=== PATIENT | male | born 1960 | race African-American/Black ===

== ENCOUNTER 2016-07-26 15:16 | Emergency (ER) | payer OTHER ==
[2016-07-26 15:34] VITALS: BP 107/71; PULSE 67; TEMP 99; BMI 27.7
[2016-07-26] MEDS ORDERED: FAMOTIDINE 20 MG/50 ML IVPB 50 ML IVPB ONE ×2 (16:19→16:24)
[2016-07-26] MEDS ORDERED: MAG HYDROX/AL HYDROX/SIMETH 30 ML UNIT-DOSE CUP PO ONE (16:19)
--- NOTE | 2016-07-26 16:19 | PDOC ---
History of Present Illness - General History Source: Patient Exam Limitations: No Limitations - History of Present Illness Initial Comments: 07/26/16 16:24 The patient is a 55 year old male, well-known to the ED, with a significant past medical history of HTN, Hepatitis C, Liver cirrhosis, Liver CA, ascites, polysubstance abuse and hemorrhoids who presents to the ED with complaints of abdominal pain for 2 weeks. The patient reports nonradiating left upper quadrant pain. Patient describes the pain as a stabbing-like sensation. The patient reports chills associated with present symptoms. Denies fevers. Denies chest pain or shortness of breath. Denies nausea, vomiting , or diarrhea. Denies changes in urination. Denies any other symptoms. PMD: Dr. Davis <Fartun Araya - Last Filed: 07/26/16 16:24> <Elvie Turk - Last Filed: 07/26/16 18:58> - General Chief Complaint: Pain, Acute Stated Complaint: LEFT ABDOMINAL PAIN Time Seen by Provider: 07/26/16 15:36 Past History <Fartun Araya - Last Filed: 07/26/16 16:24> - Past Medical History GI Disorders: Yes (gastroenteritis gi bleed) HTN: Yes Other medical history: LIVER CANCER - Psycho/Social/Smoking Cessation Hx Anxiety: No Suicidal Ideation: No Smoking History: Former smoker Have you smoked in the past 12 months: No Information on smoking cessation initiated: No Hx Alcohol Use: No Drug/Substance Use Hx: Yes Substance Use Type: None <Elvie Turk - Last Filed: 07/26/16 18:58> - Past Medical History Allergies/Adverse Reactions: Allergies Allergy/AdvReac Type Severity Reaction Status Date / Time chocolate flavor Allergy Verified 07/26/16 16:01 lactose AdvReac Verified 07/26/16 16:01 Home Medications: Ambulatory Orders Amlodipine Besylate [Norvasc -] 5 mg PO DAILY 07/26/16 Docusate Sodium [Colace -] 100 mg PO TID 07/26/16 Furosemide [Lasix] 40 mg PO DAILY 07/26/16 Metoclopramide HCl 10 mg PO TID 07/26/16 Spironolactone 25 mg PO DAILY 07/26/16 Review of Systems - Review of Systems Able to Perform ROS?: Yes Comments:: 07/26/16 16:24 GENERAL/CONSTITUTIONAL: + chills. No fever. No weakness. HEAD, EYES, EARS, NOSE AND THROAT: No change in vision. No ear pain or discharge. No sore throat. CARDIOVASCULAR: No chest pain or shortness of breath. RESPIRATORY: No cough, wheezing, or hemoptysis. GASTROINTESTINAL:+ abdominal pain. No nausea, vomiting, diarrhea or constipation. GENITOURINARY: No dysuria, frequency, or change in urination. MUSCULOSKELETAL: No joint or muscle swelling or pain. No neck or back pain. SKIN: No rash NEUROLOGIC: No headache, vertigo, loss of consciousness, or change in strength/ sensation. ENDOCRINE: No increased thirst. No abnormal weight change. HEMATOLOGIC/LYMPHATIC: No anemia, easy bleeding, or history of blood clots. ALLERGIC/IMMUNOLOGIC: No hives or skin allergy. All Other Systems: Reviewed and Negative <Fartun Araya - Last Filed: 07/26/16 16:24> *Physical Exam - Vital Signs Last Vital Signs Temp Pulse Resp BP Pulse Ox 99 F 67 20 107/71 95 07/26/16 15:17 07/26/16 15:17 07/26/16 15:17 07/26/16 16:17 07/26/16 15:17 - Physical Exam Comments: 07/26/16 16:25 GENERAL: Awake, alert, and fully oriented, in no acute distress HEAD: No signs of trauma EYES:+ Jaundice. PERRLA, EOMI. ENT: + dry mucosa. Auricles normal inspection, hearing grossly normal, nares patent, oropharynx clear without exudates. NECK: Normal ROM, supple, no lymphadenopathy, JVD, or masses LUNGS:+ decreased breath sounds at the left lung base. No wheezes, and no crackles HEART: Regular rate and rhythm, normal S1 and S2, no murmurs, rubs or gallops ABDOMEN:+ tender in the epigastric left upper quadrant, distended. Soft, normoactive bowel sounds. No guarding, no rebound. No masses EXTREMITIES: + edematous, left greater than right. Normal range of motion. No clubbing or cyanosis. No cords, erythema, or tenderness NEUROLOGICAL: Normal speech SKIN: Warm, Dry, normal turgor, no rashes or lesions noted. <Fartun Araya - Last Filed: 07/26/16 16:24> - Vital Signs Last Vital Signs Temp Pulse Resp BP Pulse Ox 99 F 67 20 107/71 95 07/26/16 15:17 07/26/16 15:17 07/26/16 15:17 07/26/16 15:17 07/26/16 15:17 <Elvie Turk - Last Filed: 07/26/16 18:58> ED Treatment Course - LABORATORY CBC & Chemistry Diagram: 07/26/16 17:21 07/26/16 17:21 <Elvie Turk - Last Filed: 07/26/16 18:58> Medical Decision Making - Medical Decision Making 07/26/16 16:17 55 yo Male with h/o liver CA , hep c cirrhosis, ascites, recent Gi bleed, just discharged on 07/16/16 her wtih c/o abdominal pain .has had since recent discharge. no f/c no cp no sob. no mod factors. taking lactulose, on methadone. on exam awake alert, jaundice, lungs kenneth left base. heart RRR. abd soft distended, pos fluid wave. luq, epigastric ttp. ext edematous L >R differential : worsening pain from meds, no sx of sbp, gastritis, plan labs antacid, reassess. will review chart to eval last imaging. will d/w Dr syed, Dr Davis. pt last CT was 04/2016 showed left lobe liver mass. had doppler left leg on last admission which was negative. and renal ultarsound which showed no hydro. 07/26/16 16:41 07/26/16 18:56 pt creatinine 1.8 near where it as on discharge. pain improved wtih maalox and pepcid. ate tolerate PO. dc home will see DR davis tomorrow afternoon. <Elvie Turk - Last Filed: 07/26/16 18:58> *DC/Admit/Observation/Transfer - Attestations Scribe Attestion: 07/26/16 16:25 Documentation prepared by Fartun Araya, acting as medical front desk coordinator for Elvie Turk MD <Fartun Araya - Last Filed: 07/26/16 16:24> - Discharge Dispostion Admit: No <Elvie Turk - Last Filed: 07/26/16 18:58> Diagnosis at time of Disposition: Abdominal pain - Discharge Dispostion Disposition: HOME Condition at time of disposition: Fair - Referrals Referrals: Alejandra Davis MD [Primary Care Provider] - - Patient Instructions Printed Discharge Instructions: Cirrhosis Additional Instructions: follow up with DR Davis tomorrow afternoon. call to arrange in the morning. return for fever or any concerns.
[2016-07-26] MEDS ORDERED: MAG HYDROX/AL HYDROX/SIMETH 30 ML UNIT-DOSE CUP ONE (16:23)
[2016-07-26 17:33] LABS: BASOPHIL 3.4 % (0-2.0); EOSINOPHIL 0.8 % (0-4.5); MCH 30.1 pg (25.7-33.7); MCHC 34.5 g/dl (32.0-35.9); MEAN CELL VOLUME 87.2 fl (80-96); MEAN PLT VOLUME 6.7 fl (7.5-11.1); NEUTROPHILS 75.4 % (42.8-82.8); PLATELET COUNT 116 K/MM3 (134-434); RDW 16.5 % (11.9-15.9); WHITE BLOOD COUNT 6.7 K/mm3 (4.0-10.8)
[2016-07-26 17:52] LABS: ACTIVATED PTT 42.2 SECONDS (24.0-38.9)
[2016-07-26 17:57] LABS: ALBUMIN 1.9 g/dl (3.5-5.0); BILIRUBIN,TOTAL 2.6 mg/dl (0.2-1.0); CALCIUM 8.9 mg/dl (8.4-10.2); COCKROFT - GAULT 66.23; CREATININE 1.8 mg/dl (0.6-1.3)
[2016-07-26 17:57] LABS: INR 1.78 (0.82-1.09); PROTHROMBIN TIME (PATIENT) 19.7 SEC (10.2-13.0)
== END 2016-07-26 19:02 | disposition home or self-care (01) ==
LOC: FER 15:16
PROC: 3E033GC Introduction of Other Therapeutic Substance into Peripheral Vein, Percutaneous Approach (ICD-10-PCS; principal; 2016-07-26)
DX: R10.9 Unspecified abdominal pain (principal); Z85.05 Personal history of malignant neoplasm of liver; B19.20 Unspecified viral hepatitis C without hepatic coma; K74.60 Unspecified cirrhosis of liver; R18.8 Other ascites
CPT/HCPCS: 36415; 71020-TC; 80053; 83690; 85025; 85610; 85730; 99284-25